=== PATIENT | female | born 1980 | race Caucasian/White ===

== ENCOUNTER → 2016-12-09 | Outpatient (CLI) | payer OTHER ==
[2016-12-09 12:32] LABS: Basophils % (A) 1 %; CH 32.6; CHCM 34.4; Eosinophils # (A) 0.3 k/uL (0-0.7); Eosinophils % (A) 5 %; HCT 43.3 % (34.0-46.0); HDW 2.61; HGB 14.5 gm/dL (11.4-16.0); Luc # (Auto) 0.13; Luc % (Auto) 2; Lymphocytes # (A) 1.6 k/uL (1.0-4.8); Lymphocytes % (A) 27 %; MCH 31.8 pg (25.0-35.0); MCHC 33.4 g/dL (31.0-37.0); MCV 95.2 fL (80.0-100.0); Mean Platelet Volume 7.8; Monocytes # (A) 0.4 k/uL (0-1.0); Monocytes % (A) 7 %; Neutrophils # (A) 3.5 k/uL (1.3-7.7); Neutrophils % (A) 58 %; RBC 4.55 m/uL (3.80-5.40); RDW 12.9 % (11.5-15.5); WBC (Perox) 5.99
== END | disposition home or self-care (01) ==
LOC: LABPAT 11:46
PROVIDERS: ATTEND Obstetrics & Gynecology
DX: Z01.812 Encounter for preprocedural laboratory examination (principal)
CPT/HCPCS: 85025

== ENCOUNTER 2016-12-17 07:36 | Day surgery (SDC) | payer OTHER ==
[2016-12-14 08:33] VITALS: BMI 28.3
--- NOTE | 2016-12-17 07:26 | P.HPOB ---
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 She is therefore scheduled for LEEP colposcopy for inconsistent samples. 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 Risks/benefits such alternatives to a LEEP colposcopy were discussed with patient in detail and all questions have been answered for her prior to proceeding to the operating room. On physical exam currently her vital signs are stable and afebrile. Heart is regular, lungs are clear, extremities are without pain. Pelvic exam as above. Abdomen is soft nontender positive bowel sounds are noted. Past Medical History Past Medical History: Asthma, GERD/Reflux Additional Past Medical History / Comment(s): HX ENDOMETRIOSIS History of Any Multi-Drug Resistant Organisms: None Reported Past Surgical History: Cholecystectomy Additional Past Surgical History / Comment(s): LAPAROSCOPIC-ENDOMETRIOSIS,I&D AXILLARY LYMPHNODE Past Anesthesia/Blood Transfusion Reactions: No Reported Reaction Additional Past Anesthesia/Blood Transfusion Reaction / Comment(s): NO HX BLOOD TRANSFUSION Past Psychological History: Depression Smoking Status: Current every day smoker Past Alcohol Use History: None Reported Additional Past Alcohol Use History / Comment(s): STARTED SMOKING 1997,<1 PPD Past Drug Use History: None Reported - Past Family History Mother Family Medical History: Cancer Additional Family Medical History / Comment(s): Mouth Cancer Father Family Medical History: Diabetes Mellitus, Hypertension Medications and Allergies Home Medications Medication Instructions Recorded Confirmed Type Norgestimate-Ethinyl Estradiol 1 tab PO QAM 05/29/16 12/14/16 History [Sprintec 28 Day Tablet] Sertraline HCl [Zoloft] 150 mg PO QAM 05/29/16 12/14/16 History Proair Inhaler (Unknown Dose) puff INHALATION PRN 12/14/16 History Allergies Allergy/AdvReac Type Severity Reaction Status Date / Time amoxicillin trihydrate Allergy Unknown Verified 12/14/16 08:21 [From Augmentin] potassium clavulanate Allergy Unknown Verified 12/14/16 08:21 [From Augmentin] rabeprazole sodium Allergy Rash/Hives Verified 12/14/16 08:21 [From Aciphex] clindamycin AdvReac Nausea & Verified 12/14/16 08:21 Vomiting Exam Osteopathic Statement: *. No significant issues noted on an osteopathic structural exam other than those noted in the History and Physical/Consult. - OBG Physical Exam Abdomen: bowel sounds normal, no diffuse tenderness, no bruit present, no guarding noted, no hepatomegaly, no splenomegaly, no mass Vulva: both: normal Vagina: normal moisture, no discharge Cervix: lesion Uterus: normal size, normal contour
[~2016-12-17 07:36] MED LIST: DEXAMETHASONE SOD PHOSPHATE 10 MG/ML 1 ML VIAL IV ONE; HYDROmorphone 1 MG/ML 1 ML SYRINGE IVP PRN; LACTATED RINGERS 1,000 ML IV SCH; MIDAZOLAM 2 MG/2 ML VIAL IV PRN; ONDANSETRON 4 MG/2 ML VIAL IVP ONE; Pre Op ABX Message 1 EACH MISC MISCELLANE ONE; SCOPOLAMINE 1.5MG/72HR PATCH TRANSDERM ONE
[2016-12-17] MEDS ORDERED: LIDOCAINE 1% 20 ML VIAL (10MG/ML) FOR IV START INTRADERMA ONE (08:05)
[2016-12-17] MEDS ORDERED: fentaNYL (PF) 50 MCG/ML 2 ML AMP ONE (08:33)
[2016-12-17] MEDS ORDERED: LIDOCAINE 1% INJ 10MG/ML (20 ML MDV) ONE (08:33)
[2016-12-17] MEDS ORDERED: PROPOFOL 10 MG/ML 20 ML VIAL IV ONE (08:33)
[2016-12-17] MEDS ORDERED: GLYCOPYRROLATE 0.2 MG/ML 2 ML VIAL ONE (08:33)
[2016-12-17] MEDS ORDERED: MIDAZOLAM 2 MG/2 ML VIAL ONE (08:33)
[2016-12-17] MEDS ORDERED: IODINE/POTASS IOD (LUGOLS) BTL TOPICAL ONE (08:49)
[2016-12-17] MEDS ORDERED: FERRIC SUBSULFATE (MONSELS) JAR TOPICAL ONE (08:58)
--- NOTE | 2016-12-17 09:10 | P.OP ---
Date of Procedure: 12/17/16 Preoperative Diagnosis: Cervical dysplasia Postoperative Diagnosis: Same Procedure(s) Performed: LEEP colposcopy Anesthesia: JONNA Surgeon: Nicholas Mendoza Estimated Blood Loss (ml): 10 Pathology: other (Ectocervix with portion of cervical canal) Condition: stable Disposition: same day Operative Findings: Tissue pathology pending Description of Procedure: Patient was taken to the operating suite where a general anesthetic was found to be adequate. She was prepped and draped in the normal sterile fashion and placed in the dorsal lithotomy position. Initially a coated speculum was inserted in the vagina and the ectocervix was covered with Lugol solution. Colposcope was then used to guide treatment. Once visualized potential dysplastic areas were identified using a 2 cm loop the ectocervix with endocervical cone portion were excised without difficulty. It was sent to pathology for evaluation. Once was accomplished Bovie cautery used to obtain hemostasis and desiccate any potential dysplastic tissue. There was one area at 4:00 the contained a bleed and 3-0 Vicryl in [id number] fashion was used to control this bleeding completely. Small quantity of Monsel solution was then placed on the cervix then all instruments were removed sponge lap and needle counts were all correct 2 and patient was taken to the recovery room in stable and satisfactory condition. Plan - Discharge Summary New Discharge Prescriptions: Acetaminophen-Codeine 300-30mg [Tylenol #3] 1 tab PO Q4H PRN #30 tablet PRN Reason: Pain Ibuprofen [Motrin] 600 mg PO Q6HR PRN #30 tab PRN Reason: Pain Discharge Medication List Norgestimate-Ethinyl Estradiol [Sprintec 28 Day Tablet] 1 tab PO QAM 05/29/16 [ History] Sertraline HCl [Zoloft] 150 mg PO QAM 05/29/16 [History] Proair Inhaler (Unknown Dose) 1 puff INHALATION ONCE PRN 12/14/16 [History] Acetaminophen-Codeine 300-30mg [Tylenol #3] 1 tab PO Q4H PRN #30 tablet [Rx] Ibuprofen [Motrin] 600 mg PO Q6HR PRN #30 tab 12/17/16 [Rx] Follow up Appointment(s)/Referral(s): Nicholas Mendoza DO [Doctor of Osteopathic Medicine] - 2 Weeks Activity/Diet/Wound Care/Special Instructions: Normaik rest, no heavy lifting, limit stairs and driving. If any high temperatures, heavy bleeding, or severe pain call my office
[2016-12-17 09:29] VITALS: TEMP 97
[2016-12-17] MEDS ORDERED: KETOROLAC 30 MG/ML 1 ML VIAL IVP ONE (09:30)
[2016-12-17 10:19] VITALS: PULSE 99; RESP 18
[2016-12-17 10:21] VITALS: BP 113/66
== END 2016-12-17 10:30 | disposition home or self-care (01) ==
LOC: OR 07:36
PROVIDERS: ATTEND Obstetrics & Gynecology
DX: N87.9 Dysplasia of cervix uteri, unspecified (principal); J45.909 Unspecified asthma, uncomplicated; F32.9 Major depressive disorder, single episode, unspecified; Z87.42 Personal history of other diseases of the female genital tract; F17.200 Nicotine dependence, unspecified, uncomplicated; Z79.3 Long term (current) use of hormonal contraceptives; Z79.899 Other long term (current) drug therapy; Z88.0 Allergy status to penicillin; Z88.2 Allergy status to sulfonamides; Z88.8 Allergy status to other drugs, medicaments and biological substances
CPT/HCPCS: 81025; 88307; 57460; J1100; J2405; J2001; J3010; J1885; J2250; J2704

== ENCOUNTER → 2018-04-25 | Outpatient (CLI) | payer OTHER ==
--- NOTE | 2018-04-25 15:55 | US ---
EXAMINATION TYPE: US kidneys/renal and bladder DATE OF EXAM: 04/25/2018 COMPARISON: Renal ultrasound June 05, 2015 CLINICAL HISTORY: R31.29 Hematuria. Lower pelvic pain, hematuria EXAM MEASUREMENTS: Right Kidney: 10.7 x 4.3 x 4.9 cm Left Kidney: 10.9 x 5.8 x 4.6 cm Post Void Residual Volume: 41.0 mL Right Kidney: no evidence of hydronephrosis or mass Left Kidney: no evidence of hydronephrosis or mass Bladder: wnl Bilateral Jets seen: yes Normal Post Void Residual: yes There is no evidence for hydronephrosis at this point in time. No nephrolithiasis is seen. No cholo s are identified. The urinary bladder is anechoic. Bilateral ureteral jets are seen. IMPRESSION: Unremarkable study.
== END | disposition home or self-care (01) ==
LOC: RADUSWWP 15:04
PROVIDERS: ATTEND Urology
DX: R31.29 Other microscopic hematuria (principal)
CPT/HCPCS: 76770

== ENCOUNTER 2019-04-19 14:05 | Emergency (ER) | payer OTHER ==
[2019-04-19 14:34] VITALS: BP 126/73; PULSE 88; RESP 18; TEMP 98.7
--- NOTE | 2019-04-19 15:37 | XR ---
EXAMINATION TYPE: XR knee complete LT DATE OF EXAM: 04/19/2019 COMPARISON: NONE HISTORY: Pain TECHNIQUE: Four views are submitted. FINDINGS: Joint spaces are preserved. Osseous structures are intact. No acute fracture seen. IMPRESSION: 1. No acute fracture or dislocation. If symptoms persist follow-up MRI could BE obtained.
--- NOTE | 2019-04-19 16:01 | ED ---
Extremity Problem HPI - General Chief complaint: Extremity Problem,Nontraumatic Stated complaint: Knee Pain Time Seen by Provider: 04/19/19 14:59 Source: patient Mode of arrival: ambulatory Limitations: no limitations - History of Present Illness Initial comments: Patient is a 38-year-old female presents emergency Department with left knee pain. Patient reports the pain is a 4 and persistent for over a 5 week. Patient denies trauma to the left knee. Patient reports the pain has not been improving. Patient reports the pain is alleviated at rest and exacerbated with knee flexion. Patient denies any trauma to left knee. Patient denies any numbness or tingling. Patient denies localized edema, erythema or skin discoloration. Patient denies taking any medication to alleviate the pain. Patient denies fever, nausea, vomiting. - Related Data Home Medications Medication Instructions Recorded Confirmed Norgestimate-Ethinyl Estradiol 1 tab PO QAM 05/29/16 04/19/19 [Sprintec 28 Day Tablet] Sertraline HCl [Zoloft] 150 mg PO QAM 05/29/16 04/19/19 Allergies Allergy/AdvReac Type Severity Reaction Status Date / Time amoxicillin trihydrate Allergy Unknown Verified 04/19/19 15:07 [From Augmentin] potassium clavulanate Allergy Unknown Verified 04/19/19 15:07 [From Augmentin] rabeprazole sodium Allergy Rash/Hives Verified 04/19/19 15:07 [From Aciphex] clindamycin AdvReac Nausea & Verified 04/19/19 15:07 Vomiting Review of Systems ROS Statement: Those systems with pertinent positive or pertinent negative responses have been documented in the HPI. ROS Other: All systems not noted in ROS Statement are negative. Past Medical History Past Medical History: No Reported History Additional Past Medical History / Comment(s): ENDOMETRIOSIS History of Any Multi-Drug Resistant Organisms: None Reported Past Surgical History: Cholecystectomy Additional Past Surgical History / Comment(s): LAPAROSCOPIC-ENDOMETRIOSIS,I&D AXILLARY LYMPHNODE Past Anesthesia/Blood Transfusion Reactions: No Reported Reaction Additional Past Anesthesia/Blood Transfusion Reaction / Comment(s): NO HX BLOOD TRANSFUSION Past Psychological History: Depression Smoking Status: Current every day smoker Past Alcohol Use History: None Reported Past Drug Use History: None Reported - Past Family History Mother Family Medical History: Cancer Father Family Medical History: Diabetes Mellitus, Hypertension General Exam Limitations: no limitations Head exam: Present: atraumatic, normocephalic, normal inspection Eye exam: Present: normal appearance, PERRL, EOMI Pupils: Present: normal accommodation ENT exam: Present: normal exam, mucous membranes moist Respiratory exam: Present: normal lung sounds bilaterally Cardiovascular Exam: Present: regular rate, normal rhythm, normal heart sounds Extremities exam: Present: normal inspection, full ROM, normal capillary refill, other (+2 bilateral dorsalis pedis and posterior tibialis.). Absent: tenderness (Infrapatellar tenderness with palpation. Tenderness with knee flexion.) Back exam: Present: normal inspection Neurological exam: Present: alert, oriented X3 Psychiatric exam: Present: normal affect, normal mood Skin exam: Present: warm, intact, normal color Course Vital Signs 04/19/19 04/19/19 14:32 16:33 Temperature 98.7 F 98.7 F Pulse Rate 88 88 Respiratory 18 18 Rate Blood Pressure 126/73 126/73 O2 Sat by Pulse 98 98 Oximetry Medical Decision Making - Medical Decision Making Patient is a 38-year-old female presents emergency Department with left knee pain. Patient advised to follow with orthopedics. X-ray is negative for a Ernandez's cyst, fracture or acute is the patient's. Patient advised to return to emergency department if symptoms worsen. Patient advised to follow with orthopedics. Patient advised to alternate between Tylenol and ibuprofen for pain control. Case discussed with physician. Disposition Clinical Impression: Knee pain, left Disposition: HOME SELF-CARE Condition: Stable Instructions (If sedation given, give patient instructions): Knee Pain (ED) Additional Instructions: Please alternate between Tylenol and ibuprofen for pain control. Please follow with orthopedics. Please return to emergency department if symptoms worsen. Is patient prescribed a controlled substance at d/c from ED?: No Referrals: Otto Barlow MD [Primary Care Provider] - 1-2 days Perfecto Zuleta DO [Doctor of Osteopathic Medicine] - 1-2 days Time of Disposition: 16:00
== END 2019-04-19 16:33 | disposition home or self-care (01) ==
LOC: EC 14:05
DX: M25.562 Pain in left knee (principal); F32.9 Major depressive disorder, single episode, unspecified; F17.200 Nicotine dependence, unspecified, uncomplicated; Z79.3 Long term (current) use of hormonal contraceptives; Z79.899 Other long term (current) drug therapy; Z88.0 Allergy status to penicillin; Z88.8 Allergy status to other drugs, medicaments and biological substances; Z88.1 Allergy status to other antibiotic agents
CPT/HCPCS: 99283

== ENCOUNTER → 2022-11-06 | Outpatient (CLI) | payer OTHER ==
--- NOTE | 2022-11-06 12:34 | US ---
EXAMINATION TYPE: US abdomen complete DATE OF EXAM: 11/06/2022 COMPARISON: Renal ultrasound 04/25/2018 CLINICAL HISTORY: N39.0 UTI. Pain TECHNIQUE: Multiple sonographic images of the abdomen are obtained. FINDINGS: EXAM MEASUREMENTS: Liver Length: 13.4 cm Gallbladder Wall: Surgically absent cm CBD: .5 cm Spleen: 7.1 cm Right Kidney: 10.1 x 4.5 x 3.8 cm Left Kidney: 10.8 x 5.1 x 4.5 cm Pancreas: Tail obscured by overlying bowel gas Liver: Increased attenuation Gallbladder: Surgically absent CBD: wnl Spleen: wnl Right Kidney: wnl Left Kidney: wnl Upper IVC: wnl Abd Aorta: wnl The liver measures homogeneous increased attenuation. No focal lesion. The intrahepatic portion of t he IVC and proximal abdominal aorta are within normal limits. Gallbladder surgically absent. Common b ile duct is unremarkable. The visualized portions of the pancreas are homogenous. The tail is obscu red by overlying bowel gas. The spleen is unremarkable. Kidneys are symmetric and free of hydronephr osis or shadowing calculi. No renal lesions are seen. IMPRESSION: 1. No acute process. 2. Hepatic steatosis.
--- NOTE | 2022-11-06 12:36 | US ---
EXAMINATION TYPE: US transvaginal DATE OF EXAM: 11/06/2022 COMPARISON: Pelvic ultrasound 08/30/2012 CLINICAL HISTORY: N39.0 UTI. pain TECHNIQUE: Transvaginal (TV). EXAM MEASUREMENTS: Uterus: 6.2 x 3.6 x 4.5 cm Endometrial Stripe: .6 cm Right Ovary: Obscured by bowel gas. Left Ovary: 1.6 x 1.3 x 1.3 cm 1. Uterus: Anteverted wnl 2. Endometrium: wnl 3. Right Ovary: Obscured by overlying bowel gas 4. Left Ovary: wnl 5. Bilateral Adnexa: wnl 6. Posterior cul-de-sac: wnl Unremarkable appearance of the uterus. Endometrium is within normal limits. Left ovary is within norm al limits. No free fluid. Right ovary is not visualized due to overlying bowel gas. IMPRESSION: No acute pelvic process.
== END | disposition home or self-care (01) ==
LOC: RADUSWWP 10:49
PROVIDERS: ATTEND Family Medicine
DX: K76.0 Fatty (change of) liver, not elsewhere classified (principal); N39.0 Urinary tract infection, site not specified
CPT/HCPCS: 76700; 76830